=== PATIENT | male | born 1990 ===

== ENCOUNTER 2017-12-10 01:53 | Emergency (ER) | payer MEDICAID ==
[2017-12-10 01:53] VITALS: BMI 21.9
[2017-12-10 01:58] VITALS: BP 137/67; PULSE 71; RESP 18; TEMP 98.5; O2SAT 97
[2017-12-10] MEDS ORDERED: Oxycodone/Acetaminophen 5/325 mg Tab PO STA (02:25)
--- NOTE | 2017-12-10 02:25 | ED PDOC ---
Arrival/HPI - General Chief Complaint: Dental Pain Time Seen by Provider: 12/10/17 02:22 Historian: Patient - History of Present Illness Narrative History of Present Illness (Text): 12/10/17 02:25 Michele Bah is a 27 year old male, whose past medical history includes brain AVM s/p clipping and seizures, who presents to the Emergency department accompanied by relative complaining of right upper dental pain for 1 hour prior to arrival. Patient states he took 2 Tylenol at home with no significant relief. Patient denies any fever, chills, sore throat, headache, dizziness, neck pain, or any other complaints. Time/Duration: 1 hour Symptom Onset: Gradual Symptom Course: Unchanged Activities at Onset: Light Context: Home Past Medical History - Provider Review Nursing Documentation Reviewed: Yes - Infectious Disease Hx of Infectious Diseases: None - Tetanus Immunization Tetanus Immunization: Up to Date - Cardiac Hx Cardiac Disorders: No - Pulmonary Hx Respiratory Disorders: No - Neurological Hx Neurological Disorder: Yes (Brain AVM) Hx Seizures: Yes - HEENT Hx HEENT Disorder: No - Renal Hx Renal Disorder: No - Endocrine/Metabolic Hx Endocrine Disorders: No - Hematological/Oncological Hx Blood Disorders: No - Integumentary Hx Dermatological Disorder: No - Musculoskeletal/Rheumatological Hx Musculoskeletal Disorders: No - Gastrointestinal Hx Gastrointestinal Disorders: No - Genitourinary/Gynecological Hx Genitourinary Disorders: No - Psychiatric Hx Psychophysiologic Disorder: No Hx Substance Use: Yes (marijuana) - Past Surgical History Past Surgical History: Unable to Obtain - Surgical History Other/Comment: Sx for AVM - Anesthesia Hx Anesthesia: Yes Hx Anesthesia Reactions: No Hx Malignant Hyperthermia: No - Suicidal Assessment Feels Threatened In Home Enviroment: No Family/Social History - Physician Review Nursing Documentation Reviewed: Yes Family/Social History: Unknown Family HX Smoking Status: Former Smoker Hx Alcohol Use: Yes Frequency of alcohol use: Few days per week Hx Substance Use: Yes (marijuana) Hx Substance Use Treatment: No Allergies/Home Meds Allergies/Adverse Reactions: Allergies No Known Allergies Allergy (Verified 12/10/17 01:55) Review of Systems - Physician Review All systems were reviewed & negative as marked: Yes - Review of Systems Constitutional: Normal. absent: Fevers Eyes: Normal ENT: Other (+dental pain) Respiratory: Normal. absent: SOB, Cough Cardiovascular: Normal. absent: Chest Pain Gastrointestinal: Normal. absent: Abdominal Pain, Diarrhea, Nausea, Vomiting Genitourinary Male: Normal. absent: Dysuria, Frequency, Hematuria, Urinary Output Changes Musculoskeletal: Normal. absent: Back Pain, Neck Pain Skin: Normal. absent: Rash Neurological: Normal. absent: Headache, Dizziness Endocrine: Normal Hemo/Lymphatic: Normal Psychiatric: Normal Physical Exam Vital Signs Reviewed: Yes Vital Signs Temp Pulse Resp BP Pulse Ox 12/10/17 01:55 98.5 F 71 18 137/67 97 Temperature: Afebrile Blood Pressure: Normal Pulse: Regular Respiratory Rate: Normal Appearance: Positive for: Well-Appearing, Non-Toxic, Comfortable Pain Distress: None Mental Status: Positive for: Alert and Oriented X 3 - Systems Exam Head: Present: Atraumatic, Normocephalic Pupils: Present: PERRL Extroacular Muscles: Present: EOMI Conjunctiva: Present: Normal Ears: Present: Normal, NORMAL TM, Normal Canal. No: Erythema, TM Bulging, Fluid , TM Perf Mouth: Present: Moist Mucous Membranes, Other (Alyssa to right upper molar) Pharnyx: Present: Normal. No: ERYTHEMA, EXUDATE, TONSILS ENLARGED, Peritonsilar Swelling, Uvular Deviation, Muffled/Hoarse Voice, Strider, Soft Palate/Uvular Edema Nose (External): Present: Atraumatic Nose (Internal): Present: Normal Inspection Neck: Present: Normal Range of Motion. No: Meningeal Signs, MIDLINE TENDERNESS , Paraspinal Tenderness Respiratory/Chest: Present: Clear to Auscultation Cardiovascular: Present: Regular Rate and Rhythm, Normal S1, S2. No: Murmurs Abdomen: Present: Normal Bowel Sounds. No: Tenderness, Distention, Peritoneal Signs Neurological: Present: GCS=15, CN II-XII Intact, Speech Normal Skin: Present: Warm, Dry, Normal Color. No: Rashes Psychiatric: Present: Alert, Oriented x 3, Normal Insight, Normal Concentration Medical Decision Making ED Course and Treatment: 12/10/17 02:25 Impression: 27 year old male complaining of right upper dental pain for 1 hour prior to arrival. Differential Diagnosis included but are not limited to: dental alyssa Plan: -- Percocet -- Reassess and disposition Progress Notes: 12/10/17 03:32 On re-evaluation, patient feels better and is in no acute distress. I have discussed the results and plan with the patient, who expresses understanding. Patient in agreement with plan to be discharged home. Patient is stable for discharge. Patient was instructed to follow up with physician or return if symptoms worsen or new concerning symptoms arise. - Medication Orders Current Medication Orders: Discontinued Medications Oxycodone/Acetaminophen (Percocet 5/325 Mg Tab) 1 tab PO STAT STA Stop: 12/10/17 02:26 Last Admin: 12/10/17 02:42 Dose: 1 tab MAR Pain Assessment Document 12/10/17 02:42 SS (Rec: 12/10/17 02:43 SS [id number]) Pain Reassessment Is this a pain reassessment? No Sleep Is patient sleeping during reassessment? No Presence of Pain Presence of Pain Yes Pain Scale Used Pain Scale Used Numeric Location Pain Location Body Site Jaw Description Description Constant Intensity of Pain at present 9 - Scribe Statement The provider has reviewed the documentation as recorded by the Roslynibfrank Coronado Provider Scribe Attestation: All medical record entries made by the Scribe were at my direction and personally dictated by me. I have reviewed the chart and agree that the record accurately reflects my personal performance of the history, physical exam, medical decision making, and the department course for this patient. I have also personally directed, reviewed, and agree with the discharge instructions and disposition. Disposition/Present on Arrival - Present on Arrival Any Indicators Present on Arrival: No History of DVT/PE: No History of Uncontrolled Diabetes: No Urinary Catheter: No History of Decub. Ulcer: No History Surgical Site Infection Following: None - Disposition Have Diagnosis and Disposition been Completed?: Yes Diagnosis: Toothache, Dental caries Disposition: HOME/ ROUTINE Disposition Time: 03:32 Patient Plan: Discharge Patient Problems: Current Active Problems Problem Status Onset Dental caries Acute Toothache Acute Condition: STABLE Discharge Instructions (ExitCare): Dental Caries (ED), Toothache (ED) Additional Instructions: Take meds as prescribed/follow up with your dentist this week Prescriptions: oxyCODONE/Acetaminophen [Percocet 5/325 mg Tab] 1 ea PO Q6 PRN #8 tab PRN Reason: Pain, Moderate (4-7) Referrals: Bev Russell MD [Primary Care Provider] - Follow up with primary Forms: [employer] (Irish), WORK NOTE
== END 2017-12-10 04:00 | disposition home or self-care (01) ==
LOC: ED 01:53
DX: K02.9 Dental caries, unspecified (principal); K08.89 Other specified disorders of teeth and supporting structures

== ENCOUNTER 2018-08-11 20:41 | Emergency (ER) | payer MEDICAID ==
[2018-08-11 20:43] VITALS: BMI 23.1
[2018-08-11 21:05] LABS: BASO # 0.03 K/mm3 (0.0-2.0); BASO % 0.5 % (0.0-3.0); EOS # 0.1 (0.0-0.7); EOS % 0.9 % (1.5-5.0); GRAN # 3.38 (1.4-6.5); GRAN % 53.5 % (50.0-68.0); HEMOGLOBIN 15.6 g/dL (14.0-18.0); LYMPH # 2.3 (1.2-3.4); LYMPH % 35.9 % (22.0-35.0); MEAN CELL VOLUME 94.7 fl (80.0-105.0); MEAN CORPUSCULAR HEMOGLOBIN 32.1 pg (25.0-35.0); MEAN CORPUSCULAR HGB CONC 33.9 g/dl (31.0-37.0); MEAN PLATELET VOLUME 11.4 fl (7.0-11.0); MONO # 0.6 (0.1-0.6); MONO % 9.2 % (1.0-6.0); RBC 4.86 10^6/uL (3.5-6.1); RED CELL DISTRIBUTION WIDTH 13.2 % (11.5-14.5); WHITE BLOOD COUNT 6.3 10^3/ul (4.5-11.0)
[2018-08-11 21:14] LABS: ALB/GLOB RATIO 1.5 (1.1-1.8); ALBUMIN 5.2 g/dL (3.0-4.8); ALT/SGPT 16 U/L (7-56); AST/SGOT 29 U/L (17-59); BLOOD UREA NITROGEN 14 mg/dL (7-21); CALCIUM 9.4 mg/dL (8.4-10.5); GFR NON-AFRICAN AMERICAN > 60
[2018-08-11] MEDS ORDERED: Fosphenytoin 1,000 MG in Sodium Chloride 0.9% 50 ML IV STA (21:19)
--- NOTE | 2018-08-11 21:31 | ED PDOC ---
Arrival/HPI - General Chief Complaint: Seizure Time Seen by Provider: 08/11/18 20:43 Historian: Patient - History of Present Illness Narrative History of Present Illness (Text): 08/11/18 20:45 Michele Bah is a 27 year old male, whose past medical history includes brain AVM s/p clipping and seizures, who presents to the Emergency department brought in by EMS status post seizure. As per EMS, patient had an unwitnessed seizure epi sode tonight. Patient is unable to recall the event. Patient denies any headache, dizziness, vision changes, vomiting, acute bowel/bladder incontinence, or any other complaints. Time/Duration: Prior to Arrival Symptom Onset: Sudden Activities at Onset: Light Context: Home Past Medical History - Provider Review Nursing Documentation Reviewed: Yes - Infectious Disease Hx of Infectious Diseases: None - Tetanus Immunization Tetanus Immunization: Up to Date - Cardiac Hx Cardiac Disorders: No - Pulmonary Hx Respiratory Disorders: No - Neurological Hx Neurological Disorder: Yes (Brain AVM) Hx Seizures: Yes - HEENT Hx HEENT Disorder: No - Renal Hx Renal Disorder: No - Endocrine/Metabolic Hx Endocrine Disorders: No - Hematological/Oncological Hx Blood Disorders: No - Integumentary Hx Dermatological Disorder: No - Musculoskeletal/Rheumatological Hx Musculoskeletal Disorders: No - Gastrointestinal Hx Gastrointestinal Disorders: No - Genitourinary/Gynecological Hx Genitourinary Disorders: No - Psychiatric Hx Psychophysiologic Disorder: No Hx Substance Use: Yes (marijuana) - Past Surgical History Past Surgical History: Unable to Obtain - Surgical History Other/Comment: Sx for AVM - Anesthesia Hx Anesthesia: Yes Hx Anesthesia Reactions: No Hx Malignant Hyperthermia: No - Suicidal Assessment Feels Threatened In Home Enviroment: No Family/Social History - Physician Review Nursing Documentation Reviewed: Yes Family/Social History: Unknown Family HX Smoking Status: Former Smoker Hx Alcohol Use: Yes Hx Substance Use: Yes (marijuana) Hx Substance Use Treatment: No Allergies/Home Meds Allergies/Adverse Reactions: Allergies No Known Allergies Allergy (Verified 12/10/17 01:55) Home Medications: Home Meds Medication Instructions Recorded Confirmed Oxcarbazepine [Trileptal] 150 mg PO BID 08/11/18 08/11/18 Phenytoin Sodium Extended 200 mg PO ACB 08/11/18 08/11/18 [Dilantin] Review of Systems - Physician Review All systems were reviewed & negative as marked: Yes - Review of Systems Constitutional: Normal. absent: Fevers Eyes: Normal ENT: Normal Respiratory: Normal. absent: SOB, Cough Cardiovascular: Normal. absent: Chest Pain Gastrointestinal: Normal. absent: Abdominal Pain, Diarrhea, Nausea, Vomiting Genitourinary Male: Normal. absent: Dysuria, Frequency, Hematuria, Urinary Output Changes Musculoskeletal: Normal. absent: Back Pain, Neck Pain Skin: Normal. absent: Rash Neurological: Seizure Endocrine: Normal Hemo/Lymphatic: Normal Psychiatric: Normal Physical Exam Vital Signs Reviewed: Yes Vital Signs Temp Pulse Resp BP Pulse Ox 08/12/18 00:10 98.2 F 87 18 117/68 97 08/11/18 23:27 95 H 17 115/62 98 08/11/18 20:47 98.6 F 115 H 17 122/76 98 Temperature: Afebrile Blood Pressure: Normal Pulse: Regular Respiratory Rate: Normal Appearance: Positive for: Well-Appearing, Non-Toxic, Comfortable Pain Distress: None Mental Status: Positive for: Alert and Oriented X 3 - Systems Exam Head: Present: Atraumatic, Normocephalic Pupils: Present: PERRL Extroacular Muscles: Present: EOMI Conjunctiva: Present: Normal Mouth: Present: Moist Mucous Membranes Neck: Present: Normal Range of Motion Respiratory/Chest: Present: Clear to Auscultation, Good Air Exchange. No: Respiratory Distress, Accessory Muscle Use Cardiovascular: Present: Regular Rate and Rhythm, Normal S1, S2. No: Murmurs Abdomen: No: Tenderness, Distention, Peritoneal Signs Back: Present: Normal Inspection Upper Extremity: Present: Normal Inspection. No: Cyanosis, Edema Lower Extremity: Present: Normal Inspection. No: Edema Neurological: Present: GCS=15, CN II-XII Intact, Speech Normal Skin: Present: Warm, Dry, Normal Color. No: Rashes Psychiatric: Present: Alert, Oriented x 3, Normal Insight, Normal Concentration Medical Decision Making ED Course and Treatment: 08/11/18 20:45 Impression: 28 year old male presents status post unwitnessed seizure episode. Plan: -- CT Head w/o contrast -- EKG -- Labs, alcohol level, Dilantin level -- Cerebryx -- Zofran -- Reassess and disposition Prior Visits: Notes and results from previous visits were reviewed. On 09/20/2017, pt was seen in the ED s/p witnessed seizure. Pt was discharged home. Progress Notes: Reviewed EKG, NSR at [address]-segment elevations or depressions, no T-wave inversions, normal intervals. 08/11/18 22:41 CT Head reviewed, shows: 1. The right lateral ventricle is larger than the left, likely congenital variant. 2. In the right frontal lobe large vascular lesion which contains dense calcifications associated with a very large feeding vessel most consistent with AVM. Further evaluation is recommended with MRI of the brain pre and post contrast as well as MRA on routine basis. Neurosurgical consult is also recommended. Electronically signed on Aug 11, 2018 22:39:12 EDT by: Talon Sweet M.D. 08/12/18 00:05 On reevaluation the patient feels better and is in no acute distress. I have discussed the results and plan with the patient, who expresses understanding. Sukhi rodriguez given the opportunity to ask question, all questions were answered and there is agreement with the plan to discharge the patient home. Patient is stable for discharge. Patient was instructed to follow up with physician/clinic in 1-2 days or return if symptoms persist/worsen or new concerning symptoms arise. - Lab Interpretations Lab Results: 08/11/18 20:57 08/11/18 20:57 Lab Results 08/11/18 20:57: Phenytoin < 3 L 08/11/18 20:57: Alcohol, Quantitative < 10 08/11/18 20:57: Sodium 140, Potassium 4.3, Chloride 103, Carbon Dioxide 17 L, Anion Gap 24 H, BUN 14, Creatinine 0.9, Est GFR ( Amer) > 60, Est GFR (Non-Af Amer) > 60, Random Glucose 92, Calcium 9.4, Magnesium 1.9, Total Bilirubin 0.5, AST 29, ALT 16, Alkaline Phosphatase 96, Total Protein 8.6 H, Albumin 5.2 H, Globulin 3.4, Albumin/Globulin Ratio 1.5 08/11/18 20:57: WBC 6.3 D, RBC 4.86, Hgb 15.6, Hct 46.0, MCV 94.7, MCH 32.1, MCHC 33.9, RDW 13.2, Plt Count 199, MPV 11.4 H, Gran % 53.5, Lymph % (Auto) 35.9 H, Larue % (Auto) 9.2 H, Eos % (Auto) 0.9 L, Baso % (Auto) 0.5, Gran # 3.38, Lymph # (Auto) 2.3, Larue # (Auto) 0.6, Eos # (Auto) 0.1, Baso # (Auto) 0.03 I have reviewed the lab results: Yes - RAD Interpretation Radiology Orders: 08/11/18 20:48 HEAD W/O CONTRAST [CT] Stat Production Control Scheduler: Radiologist - EKG Interpretation Interpreted by ED Physician: Yes Type: 12 lead EKG - Medication Orders Current Medication Orders: Discontinued Medications Fosphenytoin Sodium 1,000 mg/ (Sodium Chloride) 70 mls @ 100 mls/hr IV STAT STA Stop: 08/11/18 22:00 Last Admin: 08/11/18 22:11 Dose: 100 mls/hr eMAR Start Stop Document 08/11/18 22:11 IT (Rec: 08/11/18 22:11 IT [id number]) Intravenous Solution Start Date 08/11/18 Start Time 22:11 Ondansetron HCl (Zofran Inj) 4 mg IVP STAT STA Stop: 08/11/18 21:12 Last Admin: 08/11/18 22:12 Dose: 4 mg IVP Administration Document 08/11/18 22:12 IT (Rec: 08/11/18 22:12 IT [id number]) Charges for Administration # of IVP Administrations 1 - Scribe Statement The provider has reviewed the documentation as recorded by the Scribe Reena Coronado All medical record entries made by the Roslynibfrank were at my direction and personally dictated by me. I have reviewed the chart and agree that the record accurately reflects my personal performance of the history, physical exam, medical decision making, and the department course for this patient. I have also personally directed, reviewed, and agree with the discharge instructions and disposition. Disposition/Present on Arrival - Present on Arrival History of DVT/PE: No History of Uncontrolled Diabetes: No Urinary Catheter: No History of Decub. Ulcer: No History Surgical Site Infection Following: None - Disposition Diagnosis: Seizure, Subtherapeutic phenytoin level Disposition: HOME/ ROUTINE Disposition Time: 00:05 Patient Problems: Current Active Problems Problem Status Onset Seizure Acute Subtherapeutic phenytoin level Acute Condition: GOOD Discharge Instructions (ExitCare): Seizures, Adult (DC) Additional Instructions: take your medicine as directed Forms: [employer] (Omani), WORK NOTE
[2018-08-12 00:10] VITALS: BP 117/68; PULSE 87; RESP 18; TEMP 98.2; O2SAT 97
--- NOTE | 2018-08-12 08:46 | CT ---
Date of service: 08/11/2018 PROCEDURE: CT HEAD WITHOUT CONTRAST. HISTORY: seizure COMPARISON: 11/17/2016 and 09/20/2017 CT scans of the head 09/11/2015 MRI head. 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 TECHNIQUE: Axial computed tomography images were obtained through the head/brain without intravenous contrast. Supplemental Coronal and Sagittal projectections created and reviewed. Radiation dose: Total exam DLP = 855.32 mGy-cm. This CT exam was performed using one or more of the following dose reduction techniques: Automated exposure control, adjustment of the mA and/or kV according to patient size, and/or use of iterative reconstruction technique. FINDINGS: HEMORRHAGE: No intracranial hemorrhage. BRAIN: Stable, known right frontal parietal arteriovenous malformation. VENTRICLES: Unremarkable. No hydrocephalus. CALVARIUM: Stable post craniotomy findings. PARANASAL SINUSES: Unremarkable as visualized. No significant inflammatory changes. MASTOID AIR CELLS: Unremarkable as visualized. No inflammatory changes. OTHER FINDINGS: None. IMPRESSION: No acute intracranial abnormalities. No significant findings to account for the clinical presentation. Stability with respect to known large right AVM. No significant interval change compared to the prior examination(s). Concordant results (preliminary interpretation) provided by MARCELLA SAEED. Procedure Completed: 22:02 Preliminary ([facility]Rad) Report: Dictated and Authenticated: 22:39. Final Interpretation: 08:45. August 12, 2018.
--- NOTE | 2018-08-12 10:06 | CARD ---
APPROVED REPORT Date of service: 08/11/2018 EKG Measurement Heart [id number] <Conclusion> Normal sinus rhythm Normal ECG
== END 2018-08-12 00:10 | disposition home or self-care (01) ==
LOC: ED 20:41
DX: R56.9 Unspecified convulsions (principal); Z51.81 Encounter for therapeutic drug level monitoring
CPT/HCPCS: 70450; 80053; 80185; 80320; 83735; 85025; 93005; 96374; 99285; J2405; Q2009

== ENCOUNTER 2019-01-15 15:58 | Emergency (ER) | payer MEDICAID ==
[2019-01-15 16:02] VITALS: BMI 26.4
[2019-01-15 16:21] VITALS: RESP 18; TEMP 98.2
--- NOTE | 2019-01-15 20:24 | ED PDOC ---
Arrival/HPI - General Chief Complaint: Alcohol Ingestion Time Seen by Provider: 01/15/19 16:03 - History of Present Illness Narrative History of Present Illness (Text): 01/15/19 20:19 28 m with hx seizure disorder presents to the ED for evaluation of breakthrough seizure. Patient states that he was drinking today, has not missed a dose of his antiepileptic medication. Patient states he had a seizure at home earlier today in the afternoon. Patient denies any head injury, no extremity injury, no bodily injury. Patient arrived in the ED awake and alert, somewhat slurred speech from suspected intoxication. 01/15/19 20:25 Past Medical History - Infectious Disease Hx of Infectious Diseases: None - Tetanus Immunization Tetanus Immunization: Up to Date - Cardiac Hx Cardiac Disorders: No - Pulmonary Hx Respiratory Disorders: No - Neurological Hx Neurological Disorder: Yes (Brain AVM) Hx Seizures: Yes - HEENT Hx HEENT Disorder: No - Renal Hx Renal Disorder: No - Endocrine/Metabolic Hx Endocrine Disorders: No - Hematological/Oncological Hx Blood Disorders: No - Integumentary Hx Dermatological Disorder: No - Musculoskeletal/Rheumatological Hx Musculoskeletal Disorders: No - Gastrointestinal Hx Gastrointestinal Disorders: No - Genitourinary/Gynecological Hx Genitourinary Disorders: No - Psychiatric Hx Psychophysiologic Disorder: No Hx Substance Use: Yes (marijuana) - Past Surgical History Past Surgical History: Unable to Obtain - Surgical History Other/Comment: Sx for AVM - Anesthesia Hx Anesthesia: Yes Hx Anesthesia Reactions: No Hx Malignant Hyperthermia: No - Suicidal Assessment Feels Threatened In Home Enviroment: No Family/Social History Family/Social History: No Known Family HX Smoking Status: Former Smoker Hx Alcohol Use: Yes Frequency of alcohol use: Few days per week Hx Substance Use: Yes (marijuana) Hx Substance Use Treatment: No Allergies/Home Meds Allergies/Adverse Reactions: Allergies No Known Allergies Allergy (Verified 12/10/17 01:55) Home Medications: Home Meds Medication Instructions Recorded Confirmed Oxcarbazepine [Trileptal] 150 mg PO BID 08/11/18 01/15/19 Phenytoin Sodium Extended 200 mg PO ACB 08/11/18 01/15/19 [Dilantin] Review of Systems - Physician Review All systems were reviewed & negative as marked: Yes - Review of Systems Constitutional: Normal. absent: Fatigue Eyes: Normal ENT: Normal Respiratory: Normal Cardiovascular: Normal Gastrointestinal: Normal Skin: Normal Neurological: Seizure. absent: Headache, Dizziness, Focal Weakness, Facial Droop, Disequilibrium Psychiatric: Normal Physical Exam Vital Signs Temp Pulse Resp BP Pulse Ox 01/15/19 18:52 74 18 121/59 L 96 01/15/19 16:09 98.2 F 86 18 123/45 L 99 Temperature: Afebrile Blood Pressure: Normal Pulse: Regular Respiratory Rate: Normal Appearance: Positive for: Well-Appearing, Non-Toxic, Comfortable Pain Distress: None Mental Status: Positive for: Alert and Oriented X 3 - Systems Exam Head: Present: Normocephalic Pupils: Present: PERRL Extroacular Muscles: Present: EOMI, Other (no nystagmus) Conjunctiva: Present: Normal Mouth: Present: Moist Mucous Membranes Nose (External): Present: Atraumatic Respiratory/Chest: Present: Clear to Auscultation Cardiovascular: Present: Regular Rate and Rhythm Abdomen: No: Tenderness, Distention Upper Extremity: Present: Normal Inspection. No: Edema Neurological: Present: GCS=15, CN II-XII Intact, Speech Normal Skin: Present: Warm, Dry. No: Rashes Medical Decision Making ED Course and Treatment: 01/15/19 20:27 patient was seen for alcohol intoxication and was observed until clinical sobriety. patient states he had a seizure earlier in the day. patient takes his antiseizure medications regularly and does not need refills. patient does not exhibit and abnormal vitals or altered mentation to suggest alcohol withdrawal. Disposition/Present on Arrival - Present on Arrival Any Indicators Present on Arrival: No History of DVT/PE: No History of Uncontrolled Diabetes: No Urinary Catheter: No History of Decub. Ulcer: No History Surgical Site Infection Following: None - Disposition Have Diagnosis and Disposition been Completed?: Yes Diagnosis: Alcohol intoxication, Breakthrough seizure Disposition: HOME/ ROUTINE Disposition Time: 21:03 Patient Plan: Discharge Condition: STABLE Additional Instructions: return for any new or worsening symptoms. Referrals: Bev Russell MD [Primary Care Provider] - Follow up with primary Forms: [employer] (Dominican)
[2019-01-15 23:40] VITALS: O2SAT 100
[2019-01-15 23:41] VITALS: BP 122/74; PULSE 80
== END 2019-01-15 23:20 | disposition home or self-care (01) ==
LOC: ED 15:58
DX: G40.909 Epilepsy, unspecified, not intractable, without status epilepticus (principal); F10.129 Alcohol abuse with intoxication, unspecified; Z79.899 Other long term (current) drug therapy